=== PATIENT | female | born 1965 | race Caucasian/White ===

== ENCOUNTER → 2017-02-24 | Outpatient (CLI) | payer OTHER | END | disposition home or self-care (01) | LOC: CFH 15:53 | PROVIDERS: ATTEND Obstetrics & Gynecology | DX: Z12.31 Encounter for screening mammogram for malignant neoplasm of breast (principal) | CPT/HCPCS: G0202 ==

== ENCOUNTER → 2018-03-19 | Outpatient (CLI) | payer OTHER | END | disposition home or self-care (01) | LOC: CFH 15:40 | PROVIDERS: ATTEND Obstetrics & Gynecology | DX: Z12.31 Encounter for screening mammogram for malignant neoplasm of breast (principal) | CPT/HCPCS: 77063; 77067 ==

== ENCOUNTER 2018-12-28 15:29 | Outpatient (CLI) | payer OTHER | END 2018-12-28 23:59 | disposition home or self-care (01) | LOC: STAR 15:29 | PROVIDERS: ATTEND Specialist | DX: Z01.818 Encounter for other preprocedural examination (principal); D25.9 Leiomyoma of uterus, unspecified; R19.07 Generalized intra-abdominal and pelvic swelling, mass and lump | CPT/HCPCS: 36415; 80053; 85025; 85610; 85730 ==

== ENCOUNTER 2019-01-03 09:00 | Day surgery (SDC) | payer OTHER ==
[~2019-01-03] VITALS: Ht 180.3 cm; Wt 68.8 kg
[~2019-01-03 09:00] MED LIST: BUPIVACAINE/PF 0.25% ONE; ESCI10TA10 PO; ESTROGEN PO; GLUC1CAP18 PO; MULTIVITAMIN PO; PROG100C10 PO; VITAMIN D3 PO
[2019-01-03] MEDS ORDERED: LACTATED RINGERS 1,000 ML IV SCH (09:34)
[2019-01-03 09:43] VITALS: BP 96/64
[2019-01-03] MEDS ORDERED: FAMOTIDINE 20 MG TABLET ONE (09:47)
[2019-01-03] MEDS ORDERED: ACETAMINOPHEN 500 MG TABLET ONE ×2 (09:47→09:59)
[2019-01-03] MEDS ORDERED: GABAPENTIN 300 MG CAPSULE ONE (09:48)
[2019-01-03] MEDS ORDERED: FAMOTIDINE 20 MG TABLET PO ONE ×2 (10:00)
[2019-01-03] MEDS ORDERED: GABAPENTIN 300 MG CAPSULE PO ONE ×3 (10:00→10:30)
[2019-01-03] MEDS ORDERED: ACETAMINOPHEN 500 MG TABLET PO ONE ×2 (10:00)
[2019-01-03] MEDS ORDERED: OxyconTIN ER 10 MG TAB.ER PO ONE ×2 (10:00)
[2019-01-03] MEDS ORDERED: MIDAZOLAM 1 MG/ML, 2ML ONE (10:02)
[2019-01-03] MEDS ORDERED: FENTANYL PF 250 MCG/5ML ONE (10:02)
[2019-01-03] MEDS ORDERED: OxyconTIN ER 10 MG TAB.ER ONE (10:27)
[2019-01-03] MEDS ORDERED: OXYcodone 5 MG/5 ML ORAL.SOL UDC PO PRN (10:30)
[2019-01-03] MEDS ORDERED: HYDROmorphone 2 MG/ML, 1ML IVPush PRN (10:30)
[2019-01-03] MEDS ORDERED: PROMETHAZINE 25 MG/ML, 1ML IV PRN (10:30)
[2019-01-03] MEDS ORDERED: hydrALAzine 20 MG/ML, 1ML IV PRN (10:30)
[2019-01-03] MEDS ORDERED: ONDANSETRON 2MG/ML, 2ML IV PRN (10:30)
[2019-01-03] MEDS ORDERED: FENTANYL PF 100 MCG/2ML IV PRN (10:30)
[2019-01-03] MEDS ORDERED: ACETAMINOPHEN 325 MG TABLET PO PRN (10:30)
[2019-01-03] MEDS ORDERED: MEPERIDINE/PF 25MG/0.5ML IVPush PRN (10:30)
[2019-01-03] MEDS ORDERED: LABETALOL 5MG/ML, 20ML IV PRN (10:30)
[2019-01-03] MEDS ORDERED: NEOSTIGMINE 1 MG/ML, 10ML ONE (10:37)
[2019-01-03] MEDS ORDERED: DEXAMETHASONE 4 MG/ML, 1ML ONE ×2 (10:47)
[2019-01-03] MEDS ORDERED: CEFAZOLIN 1,000 MG ONE (10:48)
[2019-01-03 10:50] LABS: HCG UR SG 1.027 (1.003-1.030)
[2019-01-03] MEDS ORDERED: PROPOFOL 10 MG/ML, 20ML ONE (11:15)
[2019-01-03] MEDS ORDERED: ROCURONIUM 10MG/ML,5ML ONE (11:15)
[2019-01-03] MEDS ORDERED: EPHEDRINE 50 MG/ML, 1ML ONE (11:15)
[2019-01-03] MEDS ORDERED: GLYCOPYRROLATE 0.4 MG/2 ML, 2ML ONE (11:53)
[2019-01-03] MEDS ORDERED: ONDANSETRON 2MG/ML, 2ML ONE (11:54)
[2019-01-03] MEDS ORDERED: OXYcodone/APAP 7.5/325MG TABLET ONE (15:55)
[2019-01-03] MEDS ORDERED: OXYcodone/APAP 7.5/325MG TABLET PO PRN (16:00)
== END 2019-01-03 17:20 | disposition home or self-care (01) ==
LOC: OUT 09:00
PROVIDERS: ATTEND Specialist
DX: D25.9 Leiomyoma of uterus, unspecified (principal); N83.01 Follicular cyst of right ovary; N83.12 Corpus luteum cyst of left ovary; N81.89 Other female genital prolapse; N81.10 Cystocele, unspecified; N81.6 Rectocele; Z72.89 Other problems related to lifestyle; Z79.899 Other long term (current) drug therapy; Z80.1 Family history of malignant neoplasm of trachea, bronchus and lung
CPT/HCPCS: 36415; 58552; 81025; 86850; 86900; 86923; 88307; 88329; J0690; J1100; J2250; J2405; J2704; J2710; J3010; J3490; J7120; S2900

== ENCOUNTER → 2020-08-08 | Outpatient (CLI) | payer OTHER ==
[~2020-08-08] MED LIST changes: -BUPIVACAINE/PF 0.25% ONE
== END | disposition home or self-care (01) ==
LOC: CFH 14:10
PROVIDERS: ATTEND Obstetrics & Gynecology
DX: Z12.31 Encounter for screening mammogram for malignant neoplasm of breast (principal); N60.02 Solitary cyst of left breast; N60.01 Solitary cyst of right breast; N63.20 Unspecified lump in the left breast, unspecified quadrant
CPT/HCPCS: 76641; 77063; 77067